=== PATIENT | male | born 1970 | race Caucasian/White ===

== ENCOUNTER → 2024-02-27 15:22 | Outpatient (REF) | payer OTHER, SELFPAY | LOC: PAVMRI 15:22 | PROVIDERS: ATTENDING PHYSICIAN Specialist; FAMILY PHYSICIAN Physician Assistant | DX: G45.9 Transient cerebral ischemic attack, unspecified (principal); I10 Essential (primary) hypertension; E11.65 Type 2 diabetes mellitus with hyperglycemia; E78.2 Mixed hyperlipidemia; G43.009 Migraine without aura, not intractable, without status migrainosus; R42 Dizziness and giddiness | CPT/HCPCS: 93880 ==

== ENCOUNTER → 2024-03-03 17:51 | Outpatient (REF) | payer OTHER, SELFPAY | LOC: RAD 17:51 | PROVIDERS: ATTENDING PHYSICIAN Specialist; FAMILY PHYSICIAN Physician Assistant | DX: Z13.5 Encounter for screening for eye and ear disorders (principal) | CPT/HCPCS: 70030; 70544; 70547 ==

== ENCOUNTER → 2025-06-01 07:50 | Outpatient (REF) | payer OTHER, SELFPAY | LOC: RCS 07:50 | PROVIDERS: ATTENDING PHYSICIAN Nurse Practitioner; FAMILY PHYSICIAN Physician Assistant | DX: E78.2 Mixed hyperlipidemia (principal); R07.89 Other chest pain; R06.09 Other forms of dyspnea | CPT/HCPCS: 78452; 93017; A9500 ==

== ENCOUNTER 2025-06-01 14:17 | Inpatient (IN) | payer OTHER, SELFPAY ==
[2025-06-01] VITALS (11 sets, daily range): BP systolic 129–176; BP diastolic 58–103
[2025-06-01 12:27] LABS: Hematocrit 47.8 % (39.0-52.0); Hemoglobin 15.4 g/dL (13.0-18.0); Mean Corp Hgb Conc. 32.2 g/dL (33.0-37.0); Mean Corpuscular Volume 82.6 fL (80.0-94.0); Nucleated Red Blood Cells % 0 % (-); Platelet Count 259 10^3/uL (130-400); Red Cell Dist. Width 13.0 % (11.5-14.5)
[2025-06-01] MEDS: ASPIRIN 325 MG PO (12:30)
--- NOTE | 2025-06-01 12:34 | W.PN.CD ---
Addendum entered and electronically signed by Natasha Canas MD 06/01/25 13:35:
I saw and evaluated the patient, and I provided the substantive portion of the medical decision making.
I reviewed and agree with the note by Symone Harden and it accurately reflects our care.
I personally performed the medical decision making of the this encounter and my assessment and plan is below:
55-year-old male history of type 2 diabetes, hypertension, dyslipidemia and former GEA presented for evaluation for chest discomfort and shortness of breath. Stress test today, symptoms were reproducible below exercise level, nuclear imaging showed
EF was depressed to 43% with large reversible defect. Currently he is feeling better.
On exam regular rate and rhythm normal S1-S2 no murmur rubs or gallops were appreciated lungs are clear to auscultation bilaterally no lower extremity edema.
Stress may be reviewed above.
Chest pain with high risk stress test result patient referred to the ED for urgent cardiac catheterization. Give full dose aspirin, will pretreat given report of possible dye allergy. Check troponins given length of time symptoms are present.
Cardiomyopathy: Suspect ischemic etiology, will initiate GDMT as able postcatheterization.
Hyperlipidemia: Check lipids, will recommend LDL less than 55
He is agreeable to proceeding with the plan above.
-
Original Note:
Today's Communication / Plan
-
Cath today- pre-treatment for dye allergy
ASA 325 mg now
Echo
Plan as below
Impression / Plan
-
55 y/o male (will be patient of Dr. Chang) with DM2, hypertension, dyslipidemia, hx TIA, sleep apnea, and former smoker. He was seen in our office on 05/27/25 for chest discomfort and shortness of breath. Stress test was ordered at that visit and
was abnormal today (see details below), and he was sent to ER, and plan is for cath today. Full H&P uploaded to chart.
Chest discomfort, abnormal stress test:
-no CP at rest currently
-Stress test today: Perfusion imaging reveals a large area of moderately decreased perfusion that is reversible in the basal anteroseptal, basal inferoseptal, mid anterior septal, mid inferoseptal, mid anterior, mid inferior, and apical marin,
consistent with ischemia. Negative ECG for ischemia. Systolic function is mildly reduced. The ejection fraction is 43%. The exercise tolerance is below average for given age and gender. Stress Risk is high risk study (>3% NH or /year) due to
large perfusion defect, symptoms at <85% MPHR, and cardiomyopathy.
-sent to ER. Plan is for [facility] today. Reported IV dye allergy- will pretreat (per Dr. Allan - 100 mg IV solumedrol and 20 mg IV famotidine now, then 25 mg Benadryl in [facility] prior to cath). Ordered.
-give ASA 325 mg PO now. Continue 81 mg PO daily. Check HGBA1C and lipids.
-trop normal, EKG pending
Cardiomyopathy:
-seen on stress test above. Will obtain echo.
-med adjustment (GDMT) post-cath as appropriate
DM2:
-check hgb A1C
-hold metformin for cath, continue Januvia
-continue insulin degludec- takes 60-80 units QHS at home- will order 60 units here and add sliding scale insulin for meals and monitor sugars closely
-diabetic diet when can take PO after cath
HTN:
-continue lisinopril and monitor
Dyslipidemia:
-check lipids
-continue statin, but will increase dosing
Physical Exam
Vital Signs/Labs
Vital Signs
Temp Pulse Resp BP Pulse Ox
97.8 F 75 15 176/95 98
06/01/25 11:58 06/01/25 11:58 06/01/25 11:58 06/01/25 11:58 06/01/25 11:58
06/01/25 12:05
Physical Exam
Constitutional: No acute distress
EENT: Anicteric
Cardiovascular: Rhythm & rate is regular
Respiratory: Respiratory effort normal and Lungs clear to auscul.
Neuro/Psych: AO x 3
Other: Skin (warm and dry)
Data Reviewed
-
Date of Service: June 01, 2025
EKG: Tracing Personally Visualized and interpreted (EKG ordered and pending) and Other (SR)
Medical Tests (PFT, Pathology etc): Report Reviewed by me (stress test as noted) and Other (Echo aordered)
Labs: Labs Reviewed by me
--- NOTE | 2025-06-01 12:40 | ED.GENMED ---
History of Present Illness
General
Chief Complaint: Cardiac Symptoms
Source: patient and spouse
Exam Limitations: none
Time Seen by Provider: 06/01/25 12:26
Nursing documentation reviewed up to this point in time: agreed with
History of Present Illness
History of Present Illness:
55-year-old male hypertensive ex-smoker diabetic been having exertional chest pain for few months worsening recently had a stress test today showed a low EF chest pain referred to the ER for evaluation plan to go to [facility] today currently chest
pain-free EKG noted
Past History
Past History
ED Past Medical History: GERD, HTN and NIDDM; Negative Arrthythmia
ED Past Surgical History: Appendectomy and Cholecystectomy
Social History
Tobacco: Former smoker
Alcohol: Occasional
Drug: None
Personal:
Living: with family
Employment: Employed
Review of Systems
Review of Systems
All Other Systems: Not applicable
Constitutional: Denies fever or fatigue
Respiratory: Reports trouble breathing
Cardiac: Reports chest pain; Denies diaphoresis
ABD/GI: Reports no symptoms
: Reports no symptoms
Phy Exam
Physical Exam
Physical Exam:
Physical Exam
General: no apparent distress, not acutely ill
Neck: No trauma
Heart: s1/s2 regular rate and rhythm, no murmur. equal radial pulses.
Lungs: no acute respiratory distress. clear bilaterally
Abdomen: normal bowel sounds. not tender. no CVAT
Neuro: alert and oriented. no focal neurological deficits
Skin: no rash
Psychiatric: well kept. interactive and cooperative
Extremities: no edema. no calf tenderness. negative homans. good distal pulses
Scores
Heart Score for Chest Pain Patients
STEMI patient?: No
History: Highly Suspicious
ECG: Normal
Age: >45 - <65 years
Risk Factors: >/= 3 Risk Factors or History of CAD
Troponin: </= Normal Limit
Heart Score for Chest Pain Patients: 5
Heart Score Risk: 20.3% MACE over next 6 weeks
Course
Orders/Labs/Results
Orders:
Orders
06/01/25 11:53
Electrocardiogram (*1) Urgent
Reason for Study: Chest Pain
EKG- Treatment ONCE
06/01/25 12:05
Complete Blood Count/With Diff Urgent
Comprehensive Metabolic Panel Urgent
Prothrombin Time Urgent
Troponin I Urgent
06/01/25 12:06
Aspirin 325 mg PO NOW STA
06/01/25 12:24
MethylPREDNISolone PF [Solu-Medrol Pf] 100 mg IV NOW STA
06/01/25 12:29
Famotidine [Pepcid] 20 mg IV NOW STA
06/01/25 12:42
Diazepam [Valium] 5 mg PO NOW STA
06/01/25 13:00
Admit/Transfer Patient As Directed
Co-Sign Provider:
Level of Care: Inpatient admission
Assign to:: IVU
Physician / Group: Dr. Canas
Diagnosis: Chest pain, abnormal stress test
Reason for Hospitalization: chest pain, abnormal stress test
Expected length of stay greater than two midnights?: Yes
ELOS- Estimated Length of Stay in days: 3
I certify the patient meets the requirements for IP care: Yes
06/01/25 15:00
Diphenhydramine [Benadryl] 25 mg IV ONCE ONE
Abnormal Lab Results
06/01/25
12:05
MCH 26.6 L pg
(27.0-31.0)
MCHC 32.2 L g/dL
(33.0-37.0)
Absolute Monos (auto) 0.8 H 10^3/uL
(0.1-0.6)
Glucose 183 H mg/dl
(70-99)
Alkaline Phosphatase 130 H U/L
(38-126)
06/01/25 12:05
06/01/25 12:05
Vital Signs
Initial and Last Documented VS:
Initial Vital Signs
Temp Pulse Resp BP Pulse Ox
97.8 F 75 15 176/95 98
06/01/25 11:58 06/01/25 11:58 06/01/25 11:58 06/01/25 11:58 06/01/25 11:58
Last Documented Vital Signs
Temp Pulse Resp BP Pulse Ox
97.8 F 75 15 176/95 98
06/01/25 11:58 06/01/25 11:58 06/01/25 11:58 06/01/25 11:58 06/01/25 12:42
*Pulse Oximetry
SaO2: 98
Oxygen Mode of Delivery: Room air
Patient hypoxic: no
*Critical Care Note
Total Time (30-74mins, 75-104mins- exclusive of procedures): Not Applicable
ED Attending Note
-
Portions of this chart may have been created with voice recognition software.� Occasional wrong word or��sound alike� substitutions may have occurred due to the inherent limitations of voice recognition software.
Discharge Plan
Departure
Patient Disposition: Admit
Date of Disposition: 06/01/25
Time of Disposition: 12:39
Admit to: [facility]
Presentation/result/management discussed w/ accepting MD/DO: [facility] cardi[facility]
Patient with high blood pressure during this ER visit?: Yes
Condition: Fair
Covid-19: Not Applicable
Discharge Problem:
Accelerating angina
Prescriptions:
No Action
aspirin [Baby Aspirin] 81 mg Tablet,Chewable
81 mg PO DAILY
Janumet 50-1,000 mg Tablet
1 tab PO DAILY
lisinopril 20 mg Tablet
20 mg PO DAILY
insulin degludec [Tresiba FlexTouch U-100] 100 unit/mL (3 mL) Insulin Pen
60 - 80 unit SC HS
multivitamin Tablet
1 tab PO DAILY
atorvastatin 20 mg tablet
20 mg PO Q48H
fluoxetine 10 mg capsule
10 mg PO DAILY
Referrals:
Peggy Diaz PA-C [Family Provider, Internal Medicine]
Interventions
Interventions:
*Risk Screen - Suicide Last Done: 06/01/25 11:58
*General Assessment Last Done: 06/01/25 11:58
*Neglect/Abuse Screening Last Done: 06/01/25 11:58
*ED COVID-19 Vaccine History Last Done: 06/01/25 11:58
Discharge Date and Time
Print Language: SERBIAN
[2025-06-01 12:41] LABS: ALT (SGPT) 38 U/L (0-50); AST (SGOT) 23 U/L (17-59); Albumin 4.6 g/dl (3.5-5.0); Alkaline Phosphatase 130 U/L (38-126); Blood Urea Nitrogen 19 mg/dl (9-20); Calcium 9.7 mg/dl (8.4-10.2); Carbon Dioxide 26 mmol/L (22-30); Chloride 105 mmol/L (98-107); Glucose 183 mg/dl (70-99); Potassium 4.4 mmol/L (3.5-5.1); Sodium 138 mmol/L (135-145); Total Protein 7.6 g/dl (6.3-8.2); eGFR > 60.00
[2025-06-01 12:43] LABS: INR 0.92; PT 12.9 Sec (11.4-14.6)
[2025-06-01 12:54] LABS: Troponin I < 0.012 ng/ml
[2025-06-01] MEDS: VALIUM 5 MG PO (12:54)
[2025-06-01] MEDS: PEPCID 20 MG IV (14:55)
[2025-06-01] MEDS: SOLU-MEDROL PF 100 MG IV (14:55)
[2025-06-01] MEDS: BENADRYL 25 MG IV (14:55)
[2025-06-01 16:03] LABS: ACT-LR - POC 387 Seconds (116-155)
--- NOTE | 2025-06-01 16:35 | ITS.CL.ANGIO ---
Dev Ops Engineer - Angioplasty
Angioplasty
Procedure Report:
CARDIAC CATHETERIZATION REPORT
Date of Procedure: 06/01/2025
Referring: Ana Luisa Canas M.D.
INDICATION: Accelerating angina, high risk stress test.
PROCEDURE:
1. Left heart catheterization.
2. Coronary angiography.
3. Successful IVUS guided PCI of the mid LAD.
A total of 53 minutes of procedural/moderate sedation was utilized. An independent medical record coder was present to assist with and help manage the patient's level of consciousness and physiologic status.
ACCESS:
1. 6 Ukrainian right radial artery using a modified Seldinger technique delete the.
CATHETERS:
1. 5 Ukrainian JR4.
2. 5 Ukrainian JL 3.5.
3. 6 Ukrainian EBU 3.5 guiding catheter.
HEMODYNAMIC DATA
Weight (kg): 125.2
AO (s/d/x, mmHg): 137/89/110
LV (s/x mmHg): 143/20 (A wave to 31)
LEFT VENTRICULOGRAPHY: Not performed.
CORONARY ANGIOGRAPHY
Dominance: Right.
Left Main: Normal size, trifurcating vessel. There is no coronary artery disease.
LAD: Normal size vessel giving rise to 2 significant diagonals. There is a 90% lesion in the mid LAD, in between the 2 diagonals. There is a 40-50% lesion within the proximal margin of the second diagonal.
Ramus: Small size, vestigial vessel.
Circumflex: Large size, nondominant vessel giving rise to 2 obtuse marginals before terminating as a left posterolateral branch. There is no coronary artery disease.
RCA: Normal size, dominant vessel. There is no coronary artery disease.
INTERVENTION(S)
1. Successful IVUS guided PCI of the 90% mid LAD lesion (Xience Skypoint 3.25 x 18 CALIN, postdilated with a 3.25 NC balloon throughout, 3.5 NC balloon in the proximal margin) with reduction in stenosis to 0%, maintaining SHINE-3 flow.
Narrative:
The decision was made to proceed with percutaneous coronary intervention. The diagnostic catheter was removed over a wire and a 6Fr EBU 3.5 guiding catheter was advanced to the aortic root and seated in the left main coronary artery. Additional
heparin was given and a Power Turn Flex wire was advanced into the distal LAD. A BMW wire was advanced into the LAD and then into the second diagonal for protection. The 90% mid LAD lesion was predilated with a 2.0 x 12 semi-compliant balloon to 12
rafiq.
The decision was made to perform intracoronary imaging. An IVUS catheter was advanced through the guiding catheter and into the ostium of the artery. Ring down was performed once the imaging crystal was no longer inside of the guiding catheter. The
IVUS catheter was advanced into the mid LAD, beyond the second diagonal. Intravascular ultrasound was performed in a retrograde fashion using a slow pullback. Intracoronary imaging demonstrated a large burden of fibrofatty plaque in the mid LAD at
the site of angiographic stenosis without significant plaque calcification. Vessel measurements were obtained.
The IVUS catheter was removed and a Xience Skypoint 3.25 x 18 drug-eluting stent was advanced. The stent was deployed at 12 atmospheres. The stent balloon was removed. A 3.25 x 12 noncompliant balloon was advanced into the stent and the stent was
postdilated to 15 atmospheres. The 3.25 x 12 noncompliant balloon was withdrawn and a 3.5 x 8 noncompliant balloon was advanced. The proximal stent margin was postdilated to 15 rafiq. The noncompliant balloon was withdrawn.
IVUS was repeated, demonstrating excellent stent apposition and expansion throughout the stented segment. The IVUS catheter was withdrawn. The power turn flex wire was pulled back into the stented segment and redirected into the diagonal. The BMW
wire was pulled back into the proximal LAD from behind the stent struts and redirected into the mid LAD through the stented segment. This confirmed that the LAD and diagonal were both easily percutaneously accessible.
Angiography was performed in orthogonal views, confirming good stent expansion and an excellent angiographic result. The coronary wire was withdrawn and the guide was disengaged from the artery. The catheter was removed over a standard J-wire.
Closure Device: Vascular band.
Radiation (mGy): 1270.34
DAP (cm2.Gy): 69.8485
Fluoroscopy time (minutes): 9.9
CONCLUSIONS
1. Right dominant circulation with a 40-50% lesion in the proximal margin of the second diagonal and a 90% lesion in the mid LAD starting between the 2 diagonals, status post successful IVUS guided PCI (Xience Skypoint 3.25 x 18 CALIN, postdilated
with a 3.25 NC balloon throughout, 3.5 NC balloon in the proximal margin) with reduction in LAD stenosis to 0%, maintaining SHINE-3 flow in the LAD and second diagonal.
2. Moderately elevated filling pressures (LVEDP = 20 mmHg at 125.2 kg) with evidence of diastolic dysfunction (A wave to 31 mmHg).
RECOMMENDATIONS:
1. Expectant management after cardiac catheterization via right radial approach.
2. Limited weight bearing on the right wrist for one week.
3. Dual antiplatelet therapy with aspirin and clopidogrel for at least 12 months, followed by aspirin indefinitely.
4. Aggressive secondary prevention with high-dose, high potency statin. Goal LDL <55.
5. OMT/GDMT as hemodynamics will tolerate.
6. Echocardiogram ordered and pending.
7. Start furosemide 40 mg IV x 1 now, then 40 mg p.o. daily.
8. Referral to cardiac rehab.
Copy to: Ana Luisa Canas M.D., Peggy Diaz PA-C, Rafita Encarnacion M.D., Lior Chang M.D.
Brandon Allan, DO, FACC, FACP
[2025-06-01 16:59] LABS: Glucose - Point of Care 150 mg/dl (70-99)
[2025-06-01] MEDS: NSS 1000 IV (17:36)
[2025-06-01] MEDS: LASIX 40 MG IV (18:24)
[2025-06-01] MEDS: ZESTRIL 20 MG PO (18:24)
[2025-06-01] MEDS: LIPITOR 40 MG PO (18:24)
[2025-06-01] MEDS: NOVOLOG FLEXPEN-LOW RESISTANCE 1 UNITS SC (18:25)
--- NOTE | 2025-06-01 19:33 | PTCARENOTE ---
Pt received from biological lab technician post stent done via right radial artery. Radial band in place, no sign of bleeding or hematoma. Pt reports 2/10 discomfort to bilateral jaw immediately post procedure, he states he will report if it worsens. Pt voiding
without difficulty, given post cath lasix. Telemetry shows sinus rhythm.
--- NOTE | 2025-06-01 21:00 | PTCARENOTE ---
Pt rec'd at change of shift with R band in place. Band removed at 2019. area cleansed with nss with no active bleeding or hematoma present. 2x2 placed with transparent drsg. Pt aware of limb restrictions for 1 week. Voiding well in urinal 2000 ml
out so far since beginning of shift. Sinus on telemetry.
[2025-06-01 21:38] LABS: Glucose - Point of Care 399 mg/dl (70-99)
[2025-06-01] MEDS: LANTUS 0.6 UNITS SC (22:19)
[2025-06-01] MEDS: NOVOLOG FLEXPEN 5 UNITS SC (22:20)
--- NOTE | 2025-06-01 22:25 | PTCARENOTE ---
right radial drsg remains dry and intact; good radial pulse. Accu check 399. cardiac PA made aware. Pt given 5 unit of NovoLog and HS Lantus
[2025-06-02 00:14] LABS: Glucose - Point of Care 477 mg/dl (70-99)
[2025-06-02 01:08] LABS: Glucose 493 mg/dl (70-99)
[2025-06-02] MEDS: NOVOLOG FLEXPEN 4 UNITS SC (01:09)
--- NOTE | 2025-06-02 01:16 | PTCARENOTE ---
Per cardiac PA recheck accu check at midnight. result RR high. Lab specimen sent resulted at 493. PA made aware;additional 4 unit of NovoLog given
[2025-06-02 04:39] VITALS: BP 118/79
[2025-06-02 04:44] VITALS: BMI 34.7
[2025-06-02 05:40] LABS: Hematocrit 46.8 % (39.0-52.0); Hemoglobin 15.4 g/dL (13.0-18.0); Mean Corp Hgb Conc. 32.9 g/dL (33.0-37.0); Mean Corpuscular Volume 80.0 fL (80.0-94.0); Platelet Count 273 10^3/uL (130-400); Red Cell Dist. Width 13.0 % (11.5-14.5)
[2025-06-02 06:06] LABS: ALT (SGPT) 34 U/L (0-50); AST (SGOT) 20 U/L (17-59); Albumin 4.3 g/dl (3.5-5.0); Alkaline Phosphatase 123 U/L (38-126); Blood Urea Nitrogen 28 mg/dl (9-20); Calcium 9.6 mg/dl (8.4-10.2); Carbon Dioxide 18 mmol/L (22-30); Chloride 104 mmol/L (98-107); Estimated Creatinine Clearance 113 ml/min; Glucose 376 mg/dl (70-99); HDL Cholesterol 45 mg/dl; LDL Cholesterol, Calculated 116 mg/dl; Potassium 4.4 mmol/L (3.5-5.1); Sodium 134 mmol/L (135-145); Total Protein 7.0 g/dl (6.3-8.2); Very Low Density Lipoprotein 22 mg/dl (0-30); eGFR > 60.00
--- NOTE | 2025-06-02 06:12 | PTCARENOTE ---
Pt cp pain free this morning. Pt states ' I'm tired but I feel so much better'. Great output during shift coordinator, wt documented
[2025-06-02 06:57] LABS: Glucose - Point of Care 314 mg/dl (70-99)
[2025-06-02 06:58] VITALS: BP 125/79
--- NOTE | 2025-06-02 08:23 | W.PN.CD ---
Today's Communication / Plan
-
ASA, Plavix, statin
Follow-up echo
Probable discharge pending echo results
Cardiac rehab
Impression / Plan
-
55 y/o male (will be patient of Dr. Chang) with DM2, hypertension, dyslipidemia, hx TIA, sleep apnea, and former smoker admitted for high risk stress test.
Obstructive CAD with high risk stress test
- [facility] 06/01/25: 90% mid LAD, 40-50% prox D2; PCI to mid LAD; LVEDP 20 mmHg
- Continue ASA and Plavix
- Switch Atorvastatin (dizziness, myalgias, ED) to Rosuvastatin 20mg daily; goal LDL <55
- Echo today; add on GDMT as appropriate
- Cardiac rehab
DM2:
- A1c pending; sugars are out of control
- continue Januvia
- continue insulin degludec- takes 60-80 units QHS at home- will order 60 units here and add sliding scale insulin for meals and monitor sugars closely
- needs endocrine follow-up; they are trying to get GLP-1 approved
HTN:
-continue lisinopril and monitor
Subjective: Asymptomatic
Physical Exam
Vital Signs/Labs
Vital Signs
Temp Pulse Resp BP Pulse Ox
98.2 F 94 15 125/79 94
06/02/25 06:58 06/02/25 07:45 06/02/25 06:58 06/02/25 06:58 06/02/25 06:58
06/01/25 06/02/25 06/03/25
06:59 06:59 06:59
Actual Weight 263 lb 0.183 oz
06/02/25 05:17
06/02/25 05:17
PT 12.9 Sec (11.4-14.6) 06/01/25 12:05
INR 0.92 06/01/25 12:05
Triglycerides 113 mg/dl (10-149) 06/02/25 05:17
LDL Cholesterol, Calc 116 mg/dl 06/02/25 05:17
VLDL Cholesterol, Calc 22 mg/dl (0-30) 06/02/25 05:17
HDL Cholesterol 45 mg/dl 06/02/25 05:17
LAB Results
06/01/25
12:05
Troponin I < 0.012
Physical Exam
Constitutional: No acute distress and Comfortable
Cardiovascular: Rhythm & rate is regular, Pedal edema is absent, Systolic murmur present and S1S2 is normal
Respiratory: Respiratory effort normal and Lungs clear to auscul.
Neuro/Psych: AO x 3
Other: Cath Site (no swelling or erythema)
Data Reviewed
-
Date of Service: June 02, 2025
Medical Decision Making: Reviewed Test Results, Test Interpretation and Review of Case with other Provider
EKG: Tracing Personally Visualized and interpreted
Medical Tests (PFT, Pathology etc): Report Reviewed by me
Labs: Labs Reviewed by me
[2025-06-02] MEDS: JANUVIA 50 MG PO (08:28)
[2025-06-02] MEDS: LOW STRENGTH ASPIRIN 81 MG PO (08:28)
[2025-06-02] MEDS: PLAVIX 75 MG PO (08:28)
[2025-06-02] MEDS: THERAGRAN 1 TABLET PO (08:28)
[2025-06-02] MEDS: PROZAC 10 MG PO (08:29)
[2025-06-02] MEDS: ZESTRIL 20 MG PO (08:29)
[2025-06-02 08:57] LABS: Glycohemoglobin (HgbA1c) 11.3 % (4.0-5.6)
[2025-06-02] MEDS: NOVOLOG FLEXPEN-LOW RESISTANCE 10 UNITS SC (09:27)
--- NOTE | 2025-06-02 11:00 | CM ---
Chart reviewed. Patient is independent of ADLS, lives with his in a [address], 2 [address], 0 DME. Plan is for the patient to return home. CM to follow
[2025-06-02 11:24] LABS: Glucose - Point of Care 331 mg/dl (70-99)
[2025-06-02 11:25] VITALS: BP 139/92
[2025-06-02] MEDS: NOVOLOG FLEXPEN-HIGH RESISTANCE 10 UNITS SC (12:29)
--- NOTE | 2025-06-02 12:46 | W.DS.TRANS ---
DC Summary - Theater Usher
-
Discharge Instructions:
Discharge Diagnosis/Procedures Angioplasty with stent to LAD
Diet Low Cholesterol,Diabetic, Carb Controlled
Driving Restrictions No driving for 24 hours
Blood Work Check BMP in 1 week
Other Services Cardiac Rehab
Instructions:
Stand-Alone Forms: DC Instructions- Cath/EP Lab
Changes to Home Medications: Yes
Discharge Medications:
DC Medications w/original date entered in [employer]
aspirin 81 mg chewable tablet 81 mg PO DAILY 09/02/22
sitagliptin phosphate 50 mg-metformin 1,000 mg tablet (Janumet) 1 tab PO DAILY 09/02/22
Held on 06/02/25. Instructions: Resume on 06/03/25.
lisinopril 20 mg tablet 20 mg PO DAILY 09/04/22
multivitamin 1 tab PO DAILY 04/10/23
fluoxetine 10 mg capsule 10 mg PO DAILY 06/01/25
clopidogrel 75 mg tablet 75 mg PO DAILY #90 tabs 06/02/25
insulin degludec 100 unit/mL (3 mL) subcutaneous pen (Tresiba FlexTouch U-100 insulin) 80 unit (0.8 mL) SC HS #0 mL 06/02/25
nitroglycerin 0.4 mg sublingual tablet 0.4 mg sublingual [id number] PRN chest pain #25 tabs 06/02/25
rosuvastatin 20 mg tablet 20 mg PO QPM #30 tabs 06/02/25
Home Medication Changes
new to plavix, nitro, stopped atorvastatin switched to rosuvastatin 20
Pending Results: No
--- NOTE | 2025-06-02 14:51 | PTCARENOTE ---
Pt had an Echo done at bedside. Pt up walking laps in halls without problem. Pt seen by . Telemetry and IV device removed. Discharge instructions reviewed with pt and his regarding diet, activity and driving guidelines, medications
and their possible side effects, reporting cares and concerns and follow up appt's. Excellent understanding verbalized. Pt escorted out via wheelchair and discharged to home.
== END 2025-06-02 14:10 | disposition home or self-care (01) | DRG 322 ==
LOC: IVU 14:17
PROVIDERS: Emergency Medicine; Internal Medicine Cardiovascular Disease; Nurse Practitioner; ADMITTING PHYSICIAN Internal Medicine Cardiovascular Disease; EMERGENCY PHYSICIAN Emergency Medicine; FAMILY PHYSICIAN Physician Assistant
PROC: B2111ZZ Fluoroscopy of Multiple Coronary Arteries using Low Osmolar Contrast (ICD-10-PCS; 2025-06-01)
PROC: B240ZZ3 Ultrasonography of Single Coronary Artery, Intravascular (ICD-10-PCS; 2025-06-01)
PROC: 027034Z Dilation of Coronary Artery, One Artery with Drug-eluting Intraluminal Device, Percutaneous Approach (ICD-10-PCS; 2025-06-01)
PROC: 4A023N7 Measurement of Cardiac Sampling and Pressure, Left Heart, Percutaneous Approach (ICD-10-PCS; 2025-06-01)
DX: I25.110 Atherosclerotic heart disease of native coronary artery with unstable angina pectoris (principal); I10 Essential (primary) hypertension; E78.5 Hyperlipidemia, unspecified; M10.9 Gout, unspecified; F41.9 Anxiety disorder, unspecified; E11.9 Type 2 diabetes mellitus without complications; G47.33 Obstructive sleep apnea (adult) (pediatric); M19.90 Unspecified osteoarthritis, unspecified site; I42.9 Cardiomyopathy, unspecified; Z86.73 Personal history of transient ischemic attack (TIA), and cerebral infarction without residual deficits; Z79.899 Other long term (current) drug therapy; Z87.891 Personal history of nicotine dependence
CPT/HCPCS: 80053; 80061; 82947; 82962; 83036; 84484; 85025; 85027; 85347; 85610; 92978; 93005; 93306; 93458; 99152; 99153; 99285; C1725; C1753; C1769; C1874; C1887; C1894; C9600; Q9950; Q9967